=== PATIENT | male | born 1970 | race Caucasian/White ===

== ENCOUNTER 2017-05-18 23:22 | Emergency (ER) | payer BC ==
[~2017-05-18] VITALS: Ht 182.9 cm; Wt 73.8 kg
[~2017-05-18 23:22] MED LIST: AMOXICILLIN875 MG PO; ANTIVERT25 MG PO; ATORVASTATIN CA20 MG PO; LIBRIUM25 MG PO; LIPITOR20 MG PO; SERTRALINE HCL100 MG PO; THIAMINE HCL100 MG PO; ZOLOFT100 MG PO
[2017-05-19] VITALS: BP 97/67
[2017-05-19 01:23] LABS: HEMATOCRIT 29.3 % (38.0-50.0); MCH 23.9 PG (29.0-34.0); MCHC 34.5 G/DL (30.0-36.0); MCV 69.4 FL (86-99); MEAN PLAT.VOLUME 9.8 uM^3 (9.0-12.4); NRBC (%) 0.6 /100 WBC (0-0); PLATELET COUNT 81 K/uL (156-360); RBC DIS.WIDTH-CV 17.7 % (11.8-14.6); RBC DIS.WIDTH-SD 40.3 % (39-53); RED BLOOD COUNT 4.22 M/uL (4.00-5.50); WHITE BLOOD COUNT 5.2 K/uL (4.1-10.2)
[2017-05-19 02:30] LABS: ANION GAP 17 MEQ/L (2-14); CHLORIDE 107 MEQ/L (99-109); CREATINE KINASE 113 IU/L (1-294); GFR ESTIMATE (CALCULATED) > 59 mL/min/; GLUCOSE 84 mg/dL (70-99); POTASSIUM 3.7 MEQ/L (3.7-5.4); SAMPLE HEMOLYSIS CHECK 0; SAMPLE ICTERIC CHECK 0; SAMPLE LIPEMIA CHECK 0; SODIUM 142 MEQ/L (136-147); TOTAL CK 113 IU/L (1-294); UREA NITROGEN (BUN) 9 mg/dL (9-23)
== END 2017-05-19 02:26 ==
LOC: EME 23:22
PROVIDERS: Emergency Medicine
DX: F10.129 Alcohol abuse with intoxication, unspecified (principal); E86.0 Dehydration; D69.6 Thrombocytopenia, unspecified; Y90.9 Presence of alcohol in blood, level not specified; R94.31 Abnormal electrocardiogram [ECG] [EKG]; F17.200 Nicotine dependence, unspecified, uncomplicated; Z85.9 Personal history of malignant neoplasm, unspecified
CPT/HCPCS: 80048; 82550; 82553; 85027; 99281; 99285; J7030

== ENCOUNTER 2018-06-26 20:17 | Emergency (ER) | payer OTHER ==
[~2018-06-26] VITALS: Ht 185.4 cm; Wt 72.0 kg
[2018-06-26 21:02] VITALS: BP 121/76
== END 2018-06-26 21:02 ==
LOC: EME 20:17
DX: F10.129 Alcohol abuse with intoxication, unspecified (principal); Y90.8 Blood alcohol level of 240 mg/100 ml or more; F17.200 Nicotine dependence, unspecified, uncomplicated; Z85.528 Personal history of other malignant neoplasm of kidney; Z90.5 Acquired absence of kidney
CPT/HCPCS: 99281; 99283